=== PATIENT | male | born 1935 | race Asian ===

== ENCOUNTER 2017-09-23 21:22 | Emergency (ER) | payer OTHER ==
[2017-09-23 22:04] VITALS: BP 156/66; PULSE 82; TEMP 98.7; BMI 25.9
--- NOTE | 2017-09-23 22:05 | PDOC ---
Rapid Medical Evaluation Time Seen by Provider: 09/23/17 21:58 Medical Evaluation: Allergies Allergy/AdvReac Type Severity Reaction Status Date / Time losartan [Losartan] Allergy Intermediate Swelling Verified 07/31/13 21:16 09/23/17 21:58 I have performed a brief in-person evaluation of this patient. The patient presents with a chief complaint of: neck pain x 1 week, resolved after taking tylenol. hx of stroke, on coumadin, metoprolol, atorvastatin, amlodipine, took an extra dose of amlodipine at 8 pm for BP 149/102, denies chest pain, no SOB Pertinent physical exam findings: well appearing, VSS I have ordered the following: nothing The patient will proceed to the ED for further evaluation. Discharge Disposition - Diagnosis Abnormal blood pressure - Referrals Referrals: Daniel Lucero MD [Primary Care Provider] - - Patient Instructions - Post Discharge Activity
--- NOTE | 2017-09-23 22:38 | PDOC ---
History of Present Illness - General History Source: Patient, Old Records Exam Limitations: No Limitations - History of Present Illness Initial Comments: 09/23/17 23:23 Patient is a 82 year old male with as significant past medical history of A-fib , HTN, who presents to the ED with complaints of elevated blood pressure that began this afternoon at 3pm. Patient reports taking his BP this afternoon, and found it to be 165. He reports taking his BP medication, and when he noticed no change in his blood pressure results 2 hours later, he came into the ED for further evaluation. Patient states he has been taking tylenol for 1 week due to neck tightness. Denies chest pain, Sob. Denies nausea, vomiting. Denies contact with sick individuals, out of state travelling. Denies any other symptoms. Allergies: Losartan Social history: No smoking. No alcohol. No illicit drugs. Surgical history: Neurologic Surgery ("released pressure") PMD: Dr. Gilmore <Hai Skinner - Last Filed: 09/24/17 02:05> - General History Source: Patient <Gene Lozano - Last Filed: 09/28/17 19:16> - General Chief Complaint: Pain, Acute Stated Complaint: HIGH BLOOD PRESSURE Time Seen by Provider: 09/23/17 21:58 Past History <Hai Skinner - Last Filed: 09/24/17 02:05> - Past Medical History Anemia: No Asthma: No Cancer: No Cardiac Disorders: Yes (A-fib) CVA: Yes (march 27, 2013, left sided residual weakness.) COPD: No CHF: No Dementia: No Diabetes: No GI Disorders: No Disorders: No HTN: Yes Hypercholesterolemia: No Liver Disease: No Seizures: No Thyroid Disease: No - Surgical History Neurologic Surgery: Yes ("released pressure") - Immunization History Immunization Up to Date: No - Suicide/Smoking/Psychosocial Hx Smoking Status: Yes Smoking History: Never smoked Have you smoked in the past 12 months: No If you are a former smoker, when did you quit?: in Information on smoking cessation initiated: No Hx Alcohol Use: No Drug/Substance Use Hx: No Substance Use Type: None Hx Substance Use Treatment: No <Gene Lozano - Last Filed: 09/28/17 19:16> - Past Medical History Allergies/Adverse Reactions: Allergies Allergy/AdvReac Type Severity Reaction Status Date / Time losartan [Losartan] Allergy Intermediate Swelling Verified 09/23/17 22:04 Home Medications: Ambulatory Orders Dextran 70/Hypromellose [Artificial Tears] 1 each OS TID 07/31/13 Diltiazem Cd [Cardizem Cd -] 240 mg PO DAILY 07/31/13 Metoprolol Tartrate [Lopressor -] 25 mg PO DAILY 07/31/13 Ocular Lubricant Ophth Oint [Lacri-Lube S.o.p -] 1 applic OS TID 07/31/13 Pantoprazole Sodium 40 mg PO AM 07/31/13 Cefazolin 1 gm/D5w [Ancef 1 gm Premixed Ivpb -] 1 gm PO Q8H-IV #0 tab 08/02/13 Review of Systems - Review of Systems Able to Perform ROS?: Yes Comments:: 09/23/17 23:23 CONSTITUTIONAL: +Elevated blood pressure. Absent: fever, no chills, no fatigue EYES: Absent: visual changes ENT: +Neck pain. Absent: ear pain, no sore throat CARDIOVASCULAR: Absent: chest pain, no palpitations RESPIRATORY: Absent: cough, no SOB GI: Absent: abdominal pain, no nausea, no vomiting, no constipation, no diarrhea GENITOURINARY: Absent: dysuria, no frequency, no hematuria MUSCULOSKELETAL: Absent: back pain, no arthralgia, no myalgia SKIN: Absent: rash <Hai Skinner - Last Filed: 09/24/17 02:05> *Physical Exam - Vital Signs Last Vital Signs Temp Pulse Resp BP Pulse Ox 98.7 F 82 18 156/66 100 09/23/17 22:00 09/23/17 22:00 09/23/17 22:00 09/23/17 22:00 09/23/17 22:00 - Physical Exam Comments: 09/23/17 23:23 GENERAL: Well-appearing, well-nourished. No apparent distress. HEENT: Normocephalic, atraumatic. PERRL, EOM intact. CARDIOVASCULAR: Normal S1, S2. Regular rate and rhythm. PULMONARY: Clear to auscultation bilaterally. ABDOMEN: Soft, non-distended, non-tender. EXTREMITIES: Normal ROM in all four extremities. No gross deformities. SKIN: Warm, dry. No rash NEUROLOGICAL: No focal neurological deficits. <Hai Skinner - Last Filed: 09/24/17 02:05> - Vital Signs Last Vital Signs Temp Pulse Resp BP Pulse Ox 98.7 F 82 18 156/66 100 09/23/17 22:00 09/23/17 22:00 09/23/17 22:00 09/23/17 22:00 09/23/17 22:00 <Gene Lozano - Last Filed: 09/28/17 19:16> Heart Score/ECG Review - ECG Intrepretation Comment:: 09/24/17 02:05 Atrial fibrillation incomplete right bundle branch block ST & T wave abnormality,consider anterlateral ischemia Abnormal ECG Vent.rate 92 bpm RI interval * ms QRS duration 100 ms <Hai Skinner - Last Filed: 09/24/17 02:05> ED Treatment Course - LABORATORY CBC & Chemistry Diagram: 09/23/17 23:02 09/24/17 00:15 <Hai Skinner - Last Filed: 09/24/17 02:05> - LABORATORY CBC & Chemistry Diagram: 09/23/17 23:02 09/24/17 00:15 <Gene Lozano - Last Filed: 09/28/17 19:16> Medical Decision Making - Medical Decision Making 09/28/17 19:16 scribe noteDrRaven Lozano: The scribe's documentation has been prepared under my direction and personally reviewed by me in its entirery. I confirm that the note above accurately reflects all work, treatment, procedures, and medical decision making performed by me. <Gene Lozano - Last Filed: 09/28/17 19:16> *DC/Admit/Observation/Transfer - Attestations Scribe Attestion: 09/23/17 23:23 Documentation prepared by Hai Skinner, acting as medical billing and coding instructor for Gene Lozano MD/. <Hai Skinner - Last Filed: 09/24/17 02:05> - Discharge Dispostion Admit: No <Gene Lozano - Last Filed: 09/28/17 19:16> Diagnosis at time of Disposition: Abnormal blood pressure - Discharge Dispostion Disposition: HOME Condition at time of disposition: Stable - Referrals Referrals: Daniel Lucero MD [Primary Care Provider] - - Patient Instructions Printed Discharge Instructions: High Blood Pressure Additional Instructions: Please see your primary care doctor later on today for evaluation of blood pressure and medications. - Post Discharge Activity
[2017-09-23 23:45] LABS: BASO % 0.9 % (0-2.0); EOS % 3.3 % (0-4.5); HEMATOCRIT 41.6 % (35.4-49); HEMOGLOBIN 14.2 GM/dL (11.7-16.9); LYMPH % 36.5 % (8-40); MCH 32.3 pg (25.7-33.7); MCHC 34.1 g/dl (32.0-35.9); MEAN CELL VOLUME 94.9 fl (80-96); MEAN PLT VOLUME 9.3 fl (7.5-11.1); MONO % 8.3 % (3.8-10.2); PLATELET COUNT 204 K/MM3 (134-434); RBC 4.39 M/mm3 (4.00-5.60); RDW 16.8 % (11.9-15.9); WHITE BLOOD COUNT 6.6 K/mm3 (4.0-10.0)
[2017-09-24 00:54] LABS: INR 2.46 (0.82-1.09); PROTHROMBIN TIME (PATIENT) 27.8 SEC (9.98-11.88)
[2017-09-24 00:55] LABS: ALBUMIN 3.9 g/dl (3.4-5.0); ANION GAP 8 (8-16); BILIRUBIN,TOTAL 0.6 mg/dL (0.2-1.0); BLOOD UREA NITROGEN 15 mg/dL (7-18); CALCIUM 8.6 mg/dL (8.5-10.1); CHLORIDE 109 mmol/L (98-107); CO2 26 mmol/L (21-32); CREATININE 1.2 mg/dL (0.7-1.3); GLUCOSE,RANDOM 119 mg/dL (74-106); MAGNESIUM 2.2 mg/dL (1.8-2.4); POTASSIUM 3.9 mmol/L (3.5-5.1); SGOT/AST 23 U/L (15-37); SGPT/ALT 32 U/L (12-78); SODIUM 143 mmol/L (136-145); TOT PROT 7.7 g/dl (6.4-8.2)
[2017-09-24 00:56] LABS: N-TERMINAL BNP 1394.37 pg/ml (5-450)
[2017-09-24 00:58] LABS: ALK PHOS 92 U/L (45-117)
--- NOTE | 2017-09-24 10:10 | EKG ---
Test Reason : Blood Pressure : / mmHG Vent. Rate : 092 BPM Atrial Rate : 110 BPM P-R Int : 000 ms QRS Dur : 100 ms QT Int : 354 ms P-R-T Axes : 000 030 068 degrees QTc Int : 437 ms ATRIAL FIBRILLATION INCOMPLETE RIGHT BUNDLE BRANCH BLOCK ABNORMAL ECG WHEN COMPARED WITH ECG OF 01-AUG-2013 02:28, ATRIAL FIBRILLATION HAS REPLACED SINUS RHYTHM NONSPECIFIC T WAVE ABNORMALITY NOW EVIDENT IN INFERIOR LEADS Confirmed by MEMO WEST, FRANCISCO ([id number]) on 09/24/2017 10:09:48 AM Referred By: Confirmed By:FRANCISCO HAMPTON MD
--- NOTE | 2017-11-24 12:47 | EKG ---
Test Reason : Blood Pressure : / mmHG Vent. Rate : 086 BPM Atrial Rate : 071 BPM P-R Int : 000 ms QRS Dur : 100 ms QT Int : 366 ms P-R-T Axes : 000 038 041 degrees QTc Int : 437 ms ATRIAL FIBRILLATION INCOMPLETE RIGHT BUNDLE BRANCH BLOCK T WAVE ABNORMALITY, CONSIDER ANTERIOR ISCHEMIA ABNORMAL ECG WHEN COMPARED WITH ECG OF 30-MAY-2010 22:03, ATRIAL FIBRILLATION HAS REPLACED SINUS RHYTHM INCOMPLETE RIGHT BUNDLE BRANCH BLOCK IS NOW PRESENT CRITERIA FOR SEPTAL INFARCT ARE NO LONGER PRESENT Confirmed by MEMO WEST, FRANCISCO ([id number]) on 11/24/2017 12:47:12 PM Referred By: Confirmed By:FRANCISCO HAMPTON MD
== END 2017-09-24 01:29 | disposition home or self-care (01) ==
LOC: JER 21:22
DX: I10 Essential (primary) hypertension (principal); I48.91 Unspecified atrial fibrillation; Z79.01 Long term (current) use of anticoagulants; I69.854 Hemiplegia and hemiparesis following other cerebrovascular disease affecting left non-dominant side
CPT/HCPCS: 36415; 80053; 82550; 83735; 83880; 84484; 85025; 85610; 93005; 93010; 99282-25

== ENCOUNTER 2022-12-22 18:47 | Emergency (ER) | payer OTHER ==
[2022-12-22 18:59] VITALS: BMI 25.2
[2022-12-22] MEDS ORDERED: valACYclovir HCL 500 MG TABLET (FP) PO ONE (19:52)
[2022-12-22] MEDS ORDERED: valACYclovir HCL 500 MG TABLET (FP) ONE (20:00)
[2022-12-22] MEDS ORDERED: GABAPENTIN 100 MG CAPSULE PO ONE (20:09)
[2022-12-22] MEDS ORDERED: GABAPENTIN 100 MG CAPSULE ONE (20:10)
[2022-12-22 20:22] VITALS: BP 144/68; PULSE 77; RESP 19; TEMP 98.6
== END 2022-12-22 21:33 | disposition home or self-care (01) ==
LOC: JER 18:47
DX: B02.9 Zoster without complications (principal); M79.621 Pain in right upper arm; R21 Rash and other nonspecific skin eruption
CPT/HCPCS: 99283-25

== ENCOUNTER 2023-09-23 10:45 | Inpatient (IN) | payer OTHER ==
[2023-09-23 12:48] LABS: BASO % 0.5 % (0-2.0); HEMATOCRIT 36.5 % (35.4-49); HEMOGLOBIN 11.7 GM/dL (11.7-16.9); LYMPH % 9.4 % (8-40); MCH 30.4 pg (25.7-33.7); MCHC 31.9 g/dl (32.0-35.9); MEAN PLT VOLUME 8.7 fl (7.5-11.1); MONO % 8.8 % (3.8-10.2); NEUT % 81.3 % (42.8-82.8); PLATELET COUNT 197 10^3/uL (134-434); RBC 3.84 M/mm3 (4.00-5.60); RDW 17.7 % (11.9-15.9); WHITE BLOOD COUNT 14.9 K/mm3 (4.0-10.0)
[2023-09-23] MEDS ORDERED: AZITHROMYCIN IVPB 500 MG/250 ML BAG IVPB ONE (12:48)
[2023-09-23] MEDS ORDERED: CEFTRIAXONE 1 GM/50 ML BAG ONE (12:49)
[2023-09-23 12:50] LABS: VENOUS BASE EXCESS -3.5 mmol/L (-2-2); VENOUS O2 SATURATION 61.6 % (70-80); VENOUS PCO2 48.8 mmHg (38-52); VENOUS PH 7.296 (7.310-7.410)
[2023-09-23] MEDS: CEFTRIAXONE 1 GM in DEXTROSE 5%-WATER - 100 ML IVPB ONE (12:53)
[2023-09-23 13:14] LABS: POTASSIUM 4.2 mmol/L (3.5-5.1)
[2023-09-23 13:16] LABS: ALBUMIN 3.5 g/dl (3.4-5.0); CALCIUM 8.6 mg/dL (8.5-10.1); MAGNESIUM 2.2 mg/dL (1.8-2.4)
[2023-09-23 13:17] LABS: BLOOD UREA NITROGEN 21.7 mg/dL (7-18)
[2023-09-23 13:21] LABS: BILIRUBIN,TOTAL 3.1 mg/dL (0.2-1); CREATININE 1.4 mg/dL (0.55-1.3); TOT PROT 7.8 g/dl (6.4-8.2)
[2023-09-23 13:25] LABS: N-TERMINAL BNP 4506.7 pg/ml (5-450)
[2023-09-23] MEDS: AZITHROMYCIN IVPB 500 MG in DEXTROSE 5%-WATER - 250 ML IVPB ONE (13:57)
[2023-09-23] MEDS ORDERED: FUROSEMIDE 40 MG/4 ML INJECTABLE VIAL ONE (13:59)
[2023-09-23] MEDS: FUROSEMIDE 40 MG/4 ML INJECTABLE VIAL IVPUSH ONE ×2 (14:03→17:45)
[2023-09-23 15:30] LABS: MAGNESIUM 2.3 mg/dL (1.8-2.4)
[2023-09-23 15:34] LABS: PHOSPHOROUS 2.8 mg/dL (2.5-4.9)
[2023-09-23] MEDS: HEPARIN NA (PORCINE) 5,000 UNITS/ML 1ML VIAL SQ SCH (17:40)
[2023-09-23] MEDS ORDERED: FUROSEMIDE 40 MG/4 ML INJECTABLE VIAL IVPUSH ONE (17:45)
[2023-09-23] MEDS: PANTOPRAZOLE 40 MG TABLET PO SCH (17:45)
[2023-09-23 18:50] LABS: INR 3.09 (0.83-1.09); PROTHROMBIN TIME (PATIENT) 35.5 SEC (9.7-13.0)
[2023-09-23] MEDS: WARFARIN NA 1 MG TABLET PO SCH (19:50)
[2023-09-23] MEDS: ARTIFICIAL TEARS OPHTHALMIC DROPS OU SCH (21:53)
[2023-09-23] MEDS: ATORVASTATIN CA 20 MG TABLET (FP) PO SCH (21:54)
[2023-09-24 07:36] LABS: BASO % 0.2 % (0-2.0); EOS % 0.3 % (0-4.5); HEMATOCRIT 34.4 % (35.4-49); HEMOGLOBIN 11.2 GM/dL (11.7-16.9); LYMPH % 12.4 % (8-40); MCH 30.6 pg (25.7-33.7); MCHC 32.4 g/dl (32.0-35.9); MEAN CELL VOLUME 94.4 fl (80-96); MEAN PLT VOLUME 8.5 fl (7.5-11.1); MONO % 9.5 % (3.8-10.2); NEUT % 77.6 % (42.8-82.8); PLATELET COUNT 200 10^3/uL (134-434); RBC 3.64 M/mm3 (4.00-5.60); RDW 17.7 % (11.9-15.9); WHITE BLOOD COUNT 11.6 K/mm3 (4.0-10.0)
[2023-09-24 07:55] LABS: INR 3.39 (0.83-1.09); PROTHROMBIN TIME (PATIENT) 38.9 SEC (9.7-13.0)
[2023-09-24 07:59] LABS: POTASSIUM 3.6 mmol/L (3.5-5.1)
[2023-09-24 08:31] LABS: CALCIUM 8.6 mg/dL (8.5-10.1)
[2023-09-24 08:32] LABS: BLOOD UREA NITROGEN 22.4 mg/dL (7-18)
[2023-09-24 08:35] LABS: CREATININE 1.3 mg/dL (0.55-1.3)
[2023-09-24] MEDS: amLODIPine BESYLATE 10 MG TABLET (FP) PO SCH (09:29)
[2023-09-24] MEDS: metoPROLOL SUCCINATE 25 MG TAB.SR.24H (FP) PO SCH (09:29)
[2023-09-24] MEDS: FUROSEMIDE 40 MG/4 ML INJECTABLE VIAL IVPUSH SCH (09:29)
[2023-09-24] MEDS: ALLOPURINOL 100 MG TABLET (FP) PO SCH (09:30)
[2023-09-24] MEDS: CEFTRIAXONE 1 GM in DEXTROSE 5%-WATER - 50 ML IVPB SCH (14:37)
[2023-09-24] MEDS: AZITHROMYCIN IVPB 500 MG/250 ML BAG IVPB SCH (15:23)
[2023-09-25 09:03] LABS: BASO % 0.5 % (0-2.0); EOS % 0.7 % (0-4.5); HEMATOCRIT 34.2 % (35.4-49); HEMOGLOBIN 11.2 GM/dL (11.7-16.9); MCHC 32.8 g/dl (32.0-35.9); MEAN CELL VOLUME 94.5 fl (80-96); MEAN PLT VOLUME 8.5 fl (7.5-11.1); NEUT % 76.8 % (42.8-82.8); PLATELET COUNT 203 10^3/uL (134-434); RBC 3.62 M/mm3 (4.00-5.60); RDW 17.7 % (11.9-15.9); WHITE BLOOD COUNT 10.2 K/mm3 (4.0-10.0)
[2023-09-25 09:08] LABS: INR 3.03 (0.83-1.09); PROTHROMBIN TIME (PATIENT) 34.8 SEC (9.7-13.0)
[2023-09-25 09:29] LABS: POTASSIUM 3.5 mmol/L (3.5-5.1)
[2023-09-25 09:36] LABS: BLOOD UREA NITROGEN 21.9 mg/dL (7-18); CALCIUM 8.7 mg/dL (8.5-10.1)
[2023-09-25 09:40] LABS: CREATININE 1.2 mg/dL (0.55-1.3)
[2023-09-25] MEDS: KCL 10 MEQ IVPB 10 MEQ/100 ML INFUS.BAG IVPB SCH (11:19)
[2023-09-26 08:57] LABS: INR 3.44 (0.83-1.09); PROTHROMBIN TIME (PATIENT) 39.4 SEC (9.7-13.0)
[2023-09-26 09:14] LABS: BASO % 0.6 % (0-2.0); EOS % 3.4 % (0-4.5); HEMATOCRIT 36.4 % (35.4-49); HEMOGLOBIN 12.1 GM/dL (11.7-16.9); LYMPH % 18.3 % (8-40); MCH 30.9 pg (25.7-33.7); MCHC 33.3 g/dl (32.0-35.9); MEAN CELL VOLUME 92.7 fl (80-96); MEAN PLT VOLUME 8.7 fl (7.5-11.1); MONO % 6.6 % (3.8-10.2); NEUT % 71.1 % (42.8-82.8); PLATELET COUNT 238 10^3/uL (134-434); RBC 3.93 M/mm3 (4.00-5.60); RDW 17.9 % (11.9-15.9); WHITE BLOOD COUNT 9.7 K/mm3 (4.0-10.0)
[2023-09-26 09:16] LABS: POTASSIUM 3.6 mmol/L (3.5-5.1)
[2023-09-26 09:19] LABS: CALCIUM 8.7 mg/dL (8.5-10.1)
[2023-09-26 09:23] LABS: CREATININE 1.3 mg/dL (0.55-1.3)
[2023-09-27] MEDS: ACETAMINOPHEN 325 MG TABLET (FP) PO PRN (03:02)
[2023-09-27 08:52] LABS: BASO % 0.8 % (0-2.0); EOS % 7.8 % (0-4.5); HEMATOCRIT 35.2 % (35.4-49); HEMOGLOBIN 11.4 GM/dL (11.7-16.9); LYMPH % 19.4 % (8-40); MCH 30.4 pg (25.7-33.7); MCHC 32.3 g/dl (32.0-35.9); MEAN CELL VOLUME 94.1 fl (80-96); MEAN PLT VOLUME 9.1 fl (7.5-11.1); MONO % 7.6 % (3.8-10.2); NEUT % 64.4 % (42.8-82.8); PLATELET COUNT 257 10^3/uL (134-434); PROTHROMBIN TIME (PATIENT) 45.8 SEC (9.7-13.0); RBC 3.75 M/mm3 (4.00-5.60); RDW 17.6 % (11.9-15.9); WHITE BLOOD COUNT 10.6 K/mm3 (4.0-10.0)
[2023-09-27 09:08] LABS: POTASSIUM 3.7 mmol/L (3.5-5.1)
[2023-09-27 09:11] LABS: CALCIUM 8.7 mg/dL (8.5-10.1)
[2023-09-27 09:12] LABS: BLOOD UREA NITROGEN 19.2 mg/dL (7-18)
[2023-09-27 09:15] LABS: CREATININE 1.4 mg/dL (0.55-1.3)
[2023-09-28 08:24] LABS: PROTHROMBIN TIME (PATIENT) 51.5 SEC (9.7-13.0)
[2023-09-28 08:33] LABS: BASO % 0.7 % (0-2.0); EOS % 9.3 % (0-4.5); HEMATOCRIT 36.6 % (35.4-49); HEMOGLOBIN 11.9 GM/dL (11.7-16.9); LYMPH % 17.7 % (8-40); MCH 30.4 pg (25.7-33.7); MCHC 32.7 g/dl (32.0-35.9); MEAN CELL VOLUME 93.1 fl (80-96); MEAN PLT VOLUME 8.5 fl (7.5-11.1); MONO % 7.5 % (3.8-10.2); NEUT % 64.8 % (42.8-82.8); PLATELET COUNT 256 10^3/uL (134-434); RBC 3.93 M/mm3 (4.00-5.60); RDW 17.3 % (11.9-15.9); WHITE BLOOD COUNT 9.1 K/mm3 (4.0-10.0)
[2023-09-28 08:49] LABS: INR 4.51 (0.83-1.09)
[2023-09-28] MEDS: FUROSEMIDE 40 MG/4 ML INJECTABLE VIAL IVPUSH SCH (09:22)
[2023-09-28] MEDS: AZITHROMYCIN 250 MG TABLET PO SCH (09:22)
[2023-09-28 09:32] LABS: BLOOD UREA NITROGEN 19.5 mg/dL (7-18); CALCIUM 8.8 mg/dL (8.5-10.1); CREATININE 1.4 mg/dL (0.55-1.3); POTASSIUM 3.7 mmol/L (3.5-5.1)
[2023-09-28 14:36] VITALS: BMI 25.0
[2023-09-29] MEDS: FUROSEMIDE 40 MG/4 ML INJECTABLE VIAL IVPUSH SCH (09:43)
[2023-09-29 09:50] LABS: BASO % 0.6 % (0-2.0); EOS % 6.5 % (0-4.5); HEMATOCRIT 38.3 % (35.4-49); HEMOGLOBIN 12.8 GM/dL (11.7-16.9); LYMPH % 21.7 % (8-40); MCH 30.9 pg (25.7-33.7); MCHC 33.5 g/dl (32.0-35.9); MEAN CELL VOLUME 92.1 fl (80-96); MEAN PLT VOLUME 8.5 fl (7.5-11.1); MONO % 6.9 % (3.8-10.2); NEUT % 64.3 % (42.8-82.8); PLATELET COUNT 311 10^3/uL (134-434); RBC 4.16 M/mm3 (4.00-5.60); RDW 17.8 % (11.9-15.9); WHITE BLOOD COUNT 10.2 K/mm3 (4.0-10.0)
[2023-09-29 09:54] LABS: INR 3.09 (0.83-1.09); PROTHROMBIN TIME (PATIENT) 35.4 SEC (9.7-13.0)
[2023-09-29 10:08] LABS: POTASSIUM 3.5 mmol/L (3.5-5.1)
[2023-09-29 10:12] LABS: CALCIUM 9.6 mg/dL (8.5-10.1)
[2023-09-29 10:13] LABS: BLOOD UREA NITROGEN 25.1 mg/dL (7-18)
[2023-09-29 10:16] LABS: CREATININE 1.5 mg/dL (0.55-1.3)
[2023-09-29] MEDS: KCL 10 MEQ IVPB 10 MEQ/100 ML INFUS.BAG IVPB SCH (12:07)
[2023-09-29] MEDS: WARFARIN NA 1 MG TABLET PO ONE (19:52)
[2023-09-30 07:51] LABS: INR 2.89 (0.83-1.09); PROTHROMBIN TIME (PATIENT) 33.2 SEC (9.7-13.0)
[2023-09-30 08:03] LABS: BASO % 0.6 % (0-2.0); EOS % 7.9 % (0-4.5); HEMATOCRIT 39.2 % (35.4-49); LYMPH % 22.6 % (8-40); MCH 30.5 pg (25.7-33.7); MCHC 33.2 g/dl (32.0-35.9); MEAN PLT VOLUME 8.3 fl (7.5-11.1); MONO % 7.9 % (3.8-10.2); PLATELET COUNT 311 10^3/uL (134-434); RBC 4.26 M/mm3 (4.00-5.60); RDW 17.2 % (11.9-15.9); WHITE BLOOD COUNT 9.4 K/mm3 (4.0-10.0)
[2023-09-30 08:06] LABS: POTASSIUM 4.2 mmol/L (3.5-5.1)
[2023-09-30 08:16] LABS: CALCIUM 9.4 mg/dL (8.5-10.1)
[2023-09-30 08:17] LABS: BLOOD UREA NITROGEN 24.7 mg/dL (7-18); MAGNESIUM 2.6 mg/dL (1.8-2.4)
[2023-09-30 08:20] LABS: CREATININE 1.5 mg/dL (0.55-1.3)
[2023-09-30] MEDS: WARFARIN NA 1 MG TABLET PO SCH (17:29)
[2023-10-01 09:53] LABS: BASO % 0.7 % (0-2.0); EOS % 6.4 % (0-4.5); HEMOGLOBIN 12.7 GM/dL (11.7-16.9); MCH 30.4 pg (25.7-33.7); MCHC 32.7 g/dl (32.0-35.9); MEAN PLT VOLUME 8.6 fl (7.5-11.1); MONO % 7.1 % (3.8-10.2); NEUT % 61.8 % (42.8-82.8); PLATELET COUNT 325 10^3/uL (134-434); RBC 4.19 M/mm3 (4.00-5.60); RDW 17.6 % (11.9-15.9); WHITE BLOOD COUNT 9.9 K/mm3 (4.0-10.0)
[2023-10-01 09:57] LABS: INR 2.93 (0.83-1.09); PROTHROMBIN TIME (PATIENT) 33.6 SEC (9.7-13.0)
[2023-10-01 10:11] LABS: POTASSIUM 4.3 mmol/L (3.5-5.1)
[2023-10-01 10:16] LABS: CALCIUM 9.3 mg/dL (8.5-10.1)
[2023-10-01 10:17] LABS: BLOOD UREA NITROGEN 23.5 mg/dL (7-18)
[2023-10-01 10:20] LABS: CREATININE 1.6 mg/dL (0.55-1.3)
[2023-10-01 23:50] VITALS: RESP 18
[2023-10-02 08:31] LABS: BASO % 0.7 % (0-2.0); EOS % 5.5 % (0-4.5); HEMATOCRIT 37.9 % (35.4-49); HEMOGLOBIN 12.5 GM/dL (11.7-16.9); LYMPH % 28.2 % (8-40); MCH 30.7 pg (25.7-33.7); MCHC 33.1 g/dl (32.0-35.9); MEAN CELL VOLUME 92.8 fl (80-96); MEAN PLT VOLUME 8.8 fl (7.5-11.1); MONO % 8.3 % (3.8-10.2); NEUT % 57.3 % (42.8-82.8); PLATELET COUNT 287 10^3/uL (134-434); RBC 4.09 M/mm3 (4.00-5.60); RDW 17.3 % (11.9-15.9); WHITE BLOOD COUNT 9.4 K/mm3 (4.0-10.0)
[2023-10-02 08:33] LABS: INR 2.96 (0.83-1.09)
[2023-10-02 09:05] LABS: POTASSIUM 4.4 mmol/L (3.5-5.1)
[2023-10-02 09:11] LABS: CREATININE 1.4 mg/dL (0.55-1.3)
[2023-10-02 10:35] VITALS: BP 124/51; PULSE 77; TEMP 97.7
[2023-10-02] MEDS: CEFUROXIME AXETIL 500 MG TABLET PO SCH (11:07)
[2023-10-03] MEDS ORDERED: FUROSEMIDE 20 MG TABLET (FP) PO SCH (10:00)
== END 2023-10-02 13:19 | disposition home or self-care (01) | DRG 291 ==
LOC: JER 10:45 → JERBED 13:33 → OBSVTOIN 14:17 → J8W 15:38
PROVIDERS: ADMIT Internal Medicine; ATTEND Internal Medicine
DX: I13.0 Hypertensive heart and chronic kidney disease with heart failure and stage 1 through stage 4 chronic kidney disease, or unspecified chronic kidney disease (principal); I50.33 Acute on chronic diastolic (congestive) heart failure; J96.01 Acute respiratory failure with hypoxia; J18.9 Pneumonia, unspecified organism; I48.91 Unspecified atrial fibrillation; Z79.01 Long term (current) use of anticoagulants; E78.5 Hyperlipidemia, unspecified; M10.9 Gout, unspecified; E87.6 Hypokalemia; N18.9 Chronic kidney disease, unspecified
CPT/HCPCS: 0241U-QW; 36415; 71045-TC-FY; 71250-TC; 80048; 80053; 82803; 83735; 83880; 84100; 84484; 85025; 85379; 85610; 87040; 87070; 87205; 87899; 93005; 93010; 93306-TC; 97116-GP; 97162-GP; 99291; G0378

== ENCOUNTER 2024-01-14 12:26 | Inpatient (IN) | payer OTHER ==
[2024-01-14] MEDS ORDERED: ACETAMINOPHEN INJECTION 100 ML IVPB ONE (13:41)
[2024-01-14] MEDS: ACETAMINOPHEN 1000 MG/100 ML BAG IVPB ONE ×2 (13:44→13:45)
[2024-01-14] MEDS: ACETAMINOPHEN 500 MG TABLET (FP) PO ONE (13:45)
[2024-01-14 13:56] LABS: BASO % 0.6 % (0-2.0); EOS % 0.1 % (0-4.5); HEMATOCRIT 31.2 % (35.4-49); HEMOGLOBIN 10.4 GM/dL (11.7-16.9); LYMPH % 12.8 % (8-40); MCH 31.9 pg (25.7-33.7); MCHC 33.3 g/dl (32.0-35.9); MEAN CELL VOLUME 95.9 fl (80-96); MEAN PLT VOLUME 8.6 fl (7.5-11.1); MONO % 7.8 % (3.8-10.2); NEUT % 78.7 % (42.8-82.8); PLATELET COUNT 237 10^3/uL (134-434); RBC 3.26 M/mm3 (4.00-5.60); RDW 18.8 % (11.9-15.9)
[2024-01-14 14:02] LABS: INR 3.12 (0.83-1.09); PROTHROMBIN TIME (PATIENT) 34.7 SEC (9.7-13.0)
[2024-01-14 14:15] LABS: POTASSIUM 5.1 mmol/L (3.5-5.1)
[2024-01-14 14:17] LABS: CALCIUM 8.8 mg/dL (8.5-10.1)
[2024-01-14 14:18] LABS: ALBUMIN 3.6 g/dl (3.4-5.0); BLOOD UREA NITROGEN 19.3 mg/dL (7-18)
[2024-01-14 14:21] LABS: CREATININE 1.6 mg/dL (0.55-1.3)
[2024-01-14 14:23] LABS: BILIRUBIN,TOTAL 1.6 mg/dL (0.2-1); TOT PROT 7.8 g/dl (6.4-8.2)
[2024-01-14] MEDS ORDERED: PANTOPRAZOLE 40 MG TABLET PO ONE (16:47)
[2024-01-14] MEDS: PANTOPRAZOLE 40 MG TABLET PO SCH (16:51)
[2024-01-14] MEDS: D5-1/2NS+10 MEQ KCL - 10 MEQ/1,000 ML INFUS.BAG IV SCH (19:11)
[2024-01-14] MEDS: WARFARIN NA 1 MG TABLET PO ONE (19:38)
[2024-01-14] MEDS: IRON SUCROSE INJECTION 300 MG in SODIUM CHLORIDE 235 ML IVPB ONE (21:28)
[2024-01-14] MEDS: LIDOCAINE 5% TOPICAL PATCH TP SCH (21:28)
[2024-01-14] MEDS: ATORVASTATIN CA 20 MG TABLET (FP) PO SCH (21:37)
[2024-01-14] MEDS: ARTIFICIAL TEARS OPHTHALMIC DROPS OS SCH (22:45)
[2024-01-14] MEDS: OCULAR LUBRICANT OPHTHALMIC OINTMENT 7 GM TUBE OS SCH (22:46)
[2024-01-15] MEDS: ACETAMINOPHEN 325 MG TABLET (FP) PO PRN (07:27)
[2024-01-15 08:13] LABS: BASO % 0.7 % (0-2.0); EOS % 1.7 % (0-4.5); HEMATOCRIT 25.9 % (35.4-49); HEMOGLOBIN 8.8 GM/dL (11.7-16.9); MCH 32.7 pg (25.7-33.7); MCHC 33.9 g/dl (32.0-35.9); MEAN CELL VOLUME 96.6 fl (80-96); MEAN PLT VOLUME 8.5 fl (7.5-11.1); MONO % 8.9 % (3.8-10.2); NEUT % 69.7 % (42.8-82.8); PLATELET COUNT 186 10^3/uL (134-434); RBC 2.68 M/mm3 (4.00-5.60); RDW 18.7 % (11.9-15.9); WHITE BLOOD COUNT 10.6 K/mm3 (4.0-10.0)
[2024-01-15 08:43] LABS: POTASSIUM 5.1 mmol/L (3.5-5.1)
[2024-01-15 08:44] LABS: CALCIUM 8.5 mg/dL (8.5-10.1)
[2024-01-15 08:45] LABS: BLOOD UREA NITROGEN 16.5 mg/dL (7-18); MAGNESIUM 2.2 mg/dL (1.8-2.4)
[2024-01-15 08:47] LABS: CREATININE 1.1 mg/dL (0.55-1.3)
[2024-01-15] MEDS: amLODIPine BESYLATE 10 MG TABLET (FP) PO SCH (09:17)
[2024-01-15] MEDS: LIDOCAINE PATCH REMOVAL MC SCH (09:18)
[2024-01-15] MEDS: ALLOPURINOL 100 MG TABLET (FP) PO SCH (09:18)
[2024-01-15] MEDS: metoPROLOL SUCCINATE 25 MG TAB.SR.24H (FP) PO SCH (09:18)
[2024-01-15] MEDS ORDERED: amLODIPine BESYLATE 10 MG TABLET (FP) PO SCH (10:00)
[2024-01-15 10:13] LABS: INR 3.05 (0.83-1.09)
[2024-01-15] MEDS: DEXTROSE 5%-0.45% SALINE 1,000 ML IV SCH (11:30)
[2024-01-15] MEDS: IRON SUCROSE INJECTION 300 MG in SODIUM CHLORIDE 235 ML IVPB ONE (11:30)
[2024-01-15] MEDS: predniSONE 10 MG TABLET (UD) PO SCH (14:06)
[2024-01-15 18:10] LABS: INR 3.55 (0.83-1.09); PROTHROMBIN TIME (PATIENT) 38.7 SEC (9.7-13.0)
[2024-01-15] MEDS: WARFARIN NA 1 MG TABLET PO SCH (18:12)
[2024-01-16 09:53] LABS: BASO % 0.4 % (0-2.0); EOS % 0.5 % (0-4.5); HEMATOCRIT 21.8 % (35.4-49); HEMOGLOBIN 7.5 GM/dL (11.7-16.9); LYMPH % 21.4 % (8-40); MCH 32.6 pg (25.7-33.7); MCHC 34.2 g/dl (32.0-35.9); MEAN CELL VOLUME 95.5 fl (80-96); MEAN PLT VOLUME 8.8 fl (7.5-11.1); MONO % 8.9 % (3.8-10.2); NEUT % 68.8 % (42.8-82.8); PLATELET COUNT 185 10^3/uL (134-434); RBC 2.29 M/mm3 (4.00-5.60); RDW 18.7 % (11.9-15.9); WHITE BLOOD COUNT 10.9 K/mm3 (4.0-10.0)
[2024-01-16 10:13] LABS: POTASSIUM 4.5 mmol/L (3.5-5.1)
[2024-01-16 10:15] LABS: CALCIUM 8.4 mg/dL (8.5-10.1)
[2024-01-16 10:17] LABS: BLOOD UREA NITROGEN 17.8 mg/dL (7-18)
[2024-01-16 10:19] LABS: CREATININE 1.1 mg/dL (0.55-1.3)
[2024-01-16] MEDS: PANTOPRAZOLE SODIUM 40 MG VIAL IVPUSH SCH (13:00)
[2024-01-16] MEDS: amLODIPine BESYLATE 5 MG TABLET (FP) PO SCH (13:01)
[2024-01-16] MEDS: IRON SUCROSE INJECTION 300 MG in SODIUM CHLORIDE 235 ML IVPB ONE (14:03)
[2024-01-16] MEDS: EPOETIN ALFA-EPBX 20,000 UNIT/ML VIAL SQ ONE (14:03)
[2024-01-16] MEDS ORDERED: WARFARIN NA 1 MG TABLET PO SCH (18:00)
[2024-01-16 18:07] LABS: HEMATOCRIT 23.4 % (35.4-49); HEMOGLOBIN 7.8 GM/dL (11.7-16.9); MCHC 33.2 g/dl (32.0-35.9); MEAN CELL VOLUME 96.3 fl (80-96); MEAN PLT VOLUME 8.5 fl (7.5-11.1); PLATELET COUNT 201 10^3/uL (134-434); RBC 2.43 M/mm3 (4.00-5.60); RDW 18.5 % (11.9-15.9); WHITE BLOOD COUNT 12.4 K/mm3 (4.0-10.0)
[2024-01-16 18:11] LABS: INR 2.74 (0.83-1.09); PROTHROMBIN TIME (PATIENT) 30.6 SEC (9.7-13.0)
[2024-01-16 18:42] LABS: ANISOCYTOSIS 2+; MACROCYTOSIS 1+; OVALOCYTE 1+
[2024-01-17 09:48] LABS: HEMOGLOBIN 7.6 GM/dL (11.7-16.9); MEAN PLT VOLUME 8.4 fl (7.5-11.1); PLATELET COUNT 228 10^3/uL (134-434); RBC 2.37 M/mm3 (4.00-5.60); RDW 18.9 % (11.9-15.9); WHITE BLOOD COUNT 14.4 K/mm3 (4.0-10.0)
[2024-01-17 10:11] LABS: POTASSIUM 3.5 mmol/L (3.5-5.1)
[2024-01-17 10:15] LABS: BLOOD UREA NITROGEN 16.4 mg/dL (7-18)
[2024-01-17 10:16] LABS: CALCIUM 8.5 mg/dL (8.5-10.1)
[2024-01-17 10:18] LABS: CREATININE 1.2 mg/dL (0.55-1.3)
[2024-01-17 10:53] LABS: ANISOCYTOSIS 1+; MACROCYTOSIS 1+; TARGET CELLS 1+
[2024-01-17] MEDS: DOCUSATE SODIUM 100 MG CAPSULE (FP) PO SCH (13:15)
[2024-01-17] MEDS: POLYETHYLENE GLYCOL (HEALTHYLAX) 3350 17 GM PACKET PO SCH (13:15)
[2024-01-17] MEDS: MAGNESIUM HYDROX 2400MG/30ML ORAL SUSPENSION 30 ML CUP PO ONE (13:15)
[2024-01-17] MEDS: MINERAL OIL 30 ML UNIT-DOSE CUP PO ONE ×2 (13:15→18:04)
[2024-01-17] MEDS: MINERAL OIL ENEMA 133 ML ENEMA RC ONE (13:17)
[2024-01-17] MEDS: KCL 10 MEQ IVPB 10 MEQ/100 ML INFUS.BAG IVPB SCH (14:42)
[2024-01-17] MEDS: INSULIN ASPART SLIDING SCALE (NOVOLOG) 1 VIAL SQ SCH (16:41)
[2024-01-17] MEDS: BISACODYL 10 MG SUPP.RECT PR ONE (16:41)
[2024-01-17 18:52] LABS: INR 1.96 (0.83-1.09); PROTHROMBIN TIME (PATIENT) 21.7 SEC (9.7-13.0)
[2024-01-17] MEDS: IRON SUCROSE INJECTION 300 MG in SODIUM CHLORIDE 235 ML IVPB ONE (22:43)
[2024-01-18] MEDS: PANTOPRAZOLE 40 MG TABLET PO SCH (10:01)
[2024-01-18 12:06] LABS: HEMATOCRIT 22.7 % (35.4-49); HEMOGLOBIN 7.4 GM/dL (11.7-16.9); MCH 32.2 pg (25.7-33.7); MCHC 32.7 g/dl (32.0-35.9); MEAN CELL VOLUME 98.5 fl (80-96); MEAN PLT VOLUME 8.5 fl (7.5-11.1); PLATELET COUNT 252 10^3/uL (134-434); RBC 2.31 M/mm3 (4.00-5.60); RDW 19.2 % (11.9-15.9); WHITE BLOOD COUNT 13.6 K/mm3 (4.0-10.0)
[2024-01-18 12:23] LABS: POTASSIUM 4.2 mmol/L (3.5-5.1)
[2024-01-18 13:00] LABS: BLOOD UREA NITROGEN 18.7 mg/dL (7-18); CALCIUM 8.4 mg/dL (8.5-10.1)
[2024-01-18 13:04] LABS: CREATININE 1.2 mg/dL (0.55-1.3)
[2024-01-18 13:19] LABS: ANISOCYTOSIS 2+; MACROCYTOSIS 0
[2024-01-18 15:23] VITALS: BMI 25.3
[2024-01-18] MEDS: IRON SUCROSE INJECTION 300 MG in SODIUM CHLORIDE 235 ML IVPB ONE (15:39)
[2024-01-18 17:39] LABS: INR 1.64 (0.83-1.09); PROTHROMBIN TIME (PATIENT) 18.6 SEC (9.7-13.0)
[2024-01-19] MEDS: POLYETHYLENE GLYCOL (HEALTHYLAX) 3350 17 GM PACKET PO SCH (09:49)
[2024-01-19] MEDS ORDERED: IRON SUCROSE INJECTION 300 MG in SODIUM CHLORIDE 235 ML IVPB ONE (10:00)
[2024-01-19 11:03] LABS: HEMATOCRIT 28.8 % (35.4-49); HEMOGLOBIN 9.6 GM/dL (11.7-16.9); MCHC 33.3 g/dl (32.0-35.9); MEAN CELL VOLUME 93.1 fl (80-96); MEAN PLT VOLUME 8.2 fl (7.5-11.1); PLATELET COUNT 248 10^3/uL (134-434); RBC 3.09 M/mm3 (4.00-5.60); RDW 21.7 % (11.9-15.9); RETICULOCYTES 4.49 % (0.5-1.5); WHITE BLOOD COUNT 15.9 K/mm3 (4.0-10.0)
[2024-01-19 11:24] LABS: POTASSIUM 3.6 mmol/L (3.5-5.1)
[2024-01-19 11:27] LABS: CALCIUM 8.8 mg/dL (8.5-10.1)
[2024-01-19 11:28] LABS: BLOOD UREA NITROGEN 20.5 mg/dL (7-18)
[2024-01-19 11:31] LABS: CREATININE 1.4 mg/dL (0.55-1.3)
[2024-01-19 11:50] LABS: ANISOCYTOSIS 2+; MACROCYTOSIS 2+
[2024-01-19] MEDS: CYANOCOBALAMIN 1,000 MCG TABLET (FP) PO SCH (17:51)
[2024-01-19 21:37] LABS: INR 1.21 (0.83-1.09); PROTHROMBIN TIME (PATIENT) 13.6 SEC (9.7-13.0)
[2024-01-20 07:49] LABS: HEMATOCRIT 28.3 % (35.4-49); HEMOGLOBIN 9.4 GM/dL (11.7-16.9); MCH 31.5 pg (25.7-33.7); MCHC 33.4 g/dl (32.0-35.9); MEAN CELL VOLUME 94.3 fl (80-96); MEAN PLT VOLUME 8.2 fl (7.5-11.1); PLATELET COUNT 246 10^3/uL (134-434); RDW 20.5 % (11.9-15.9); WHITE BLOOD COUNT 15.8 K/mm3 (4.0-10.0)
[2024-01-20 10:41] LABS: ANISOCYTOSIS 1+; MACROCYTOSIS 1+
[2024-01-20] MEDS: DEXTROSE 5%-0.45% SALINE 1,000 ML IV SCH (11:40)
[2024-01-20] MEDS: WARFARIN NA 1 MG TABLET PO SCH (17:49)
[2024-01-20 18:08] LABS: GLIADIN ANTIBODY IGA 5 units (0-19); GLIADIN ANTIBODY IGG 2 units (0-19); TRANSGLUTAMINASE IGG 2 U/mL (0-5)
[2024-01-20 18:35] LABS: INR 1.13 (0.83-1.09); PROTHROMBIN TIME (PATIENT) 12.9 SEC (9.7-13.0)
[2024-01-21 09:29] VITALS: RESP 18
[2024-01-21 09:43] LABS: HEMATOCRIT 29.9 % (35.4-49); HEMOGLOBIN 9.8 GM/dL (11.7-16.9); MCH 31.5 pg (25.7-33.7); MCHC 32.9 g/dl (32.0-35.9); MEAN CELL VOLUME 95.7 fl (80-96); PLATELET COUNT 250 10^3/uL (134-434); RBC 3.13 M/mm3 (4.00-5.60); RDW 21.3 % (11.9-15.9); WHITE BLOOD COUNT 15.4 K/mm3 (4.0-10.0)
[2024-01-21 10:41] LABS: ANISOCYTOSIS 2+; MACROCYTOSIS 2+
[2024-01-21 15:33] VITALS: BP 110/55; PULSE 76; TEMP 97.5
[2024-01-21 20:07] LABS: IG A QN SERUM. 264 mg/dL (61-437)
== END 2024-01-21 19:18 | DRG 554 ==
LOC: JER 12:26 → JERBED 16:02 → OBSVTOIN 16:13 → J7W 17:37
PROVIDERS: ADMIT Internal Medicine; ATTEND Internal Medicine
PROC: 30233N1 Transfusion of Nonautologous Red Blood Cells into Peripheral Vein, Percutaneous Approach (ICD-10-PCS; principal; 2024-01-18)
DX: M17.12 Unilateral primary osteoarthritis, left knee (principal); I48.20 Chronic atrial fibrillation, unspecified; Z94.4 Liver transplant status; I50.32 Chronic diastolic (congestive) heart failure; R26.2 Difficulty in walking, not elsewhere classified; F03.90 Unspecified dementia, unspecified severity, without behavioral disturbance, psychotic disturbance, mood disturbance, and anxiety; I11.0 Hypertensive heart disease with heart failure; M25.462 Effusion, left knee; E86.0 Dehydration; D50.9 Iron deficiency anemia, unspecified; E78.5 Hyperlipidemia, unspecified
CPT/HCPCS: 36415; 36430; 71250-TC; 72170-TC-FY; 73030-TC-LT-FY; 73502-TC-LT-FY; 73562-TC-LT-FY; 73700-TC-RT; 74176-TC; 80048; 80053; 82272; 82607; 82728; 82746; 82784; 82962; 83516; 83540; 83550; 83735; 84155; 84165; 85025; 85045; 85610; 86334; 86850; 86900; 86901; 86922; 87635; 93005; 93010; 97116-GP; 97162-GP; 99285-25; G0378; J0131; J1756; P9038; P9058